=== PATIENT | female | born 1965 | race African-American/Black ===

== ENCOUNTER 2018-02-04 05:02 | Day surgery (SDC) | payer OTHER ==
[2018-02-03 17:17] VITALS: BMI 29.2
--- NOTE | 2018-02-03 19:40 | HP ---
DATE OF ADMISSION: 02/04/2018 DATE OF SURGERY: 02/04/2018 ADMITTING DIAGNOSIS: Chronic sinusitis. HISTORY OF PRESENT ILLNESS: This 52-year-old female has had longstanding history of nasal and sinus symptoms which have failed to improve with appropriate medical therapy. She has had headache, nasal drainage including purulent nasal drainage , sinus pain and sinus pressure as well as dental pain. There has been no significant blood. She had had prior antibiotic treatment which failed to keep her symptoms away. She sometimes also gets a bad odor from her nose. She has had a previous positive CT in 2013, a more recent CT in 2018 shows continued chronic sinusitis. She is now brought to surgery for treatment. PAST MEDICAL HISTORY: Primary medical doctor is Sarah Burton M.D. Patient has history of allergic rhinitis, chronic sinusitis. She has undergone prior surgery for hemorrhoids and metacarpal surgery and shoulder surgery under general anesthesia. She had a in 2001. She has never smoked. PRESENT MEDICATIONS: Include fluticasone nasal spray and fluocinolone topical steroid cream. ALLERGIES TO MEDICATIONS: None known. There is no history of anesthesia problems. Bleeding history is negative. Negative for bleeding or anesthesia problems. Patient is postmenopausal. PHYSICAL EXAMINATION: General: Patient is well developed female, in no distress. HEENT: Head is normal. Eyes are clear. Ears are unremarkable. She does have normal external nose. The nasal septum is deviated, turbinates are slightly enlarged. She has had pus in the left middle meatus. Neck: Unremarkable. 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 The tunnel recess is narrowed by mucosal thickening. There is an agger nasi cell. There is thickening in left anterior ethmoid cells, and disease in the ethmoid bulla. Maxillary sinus is nearly completely opacified with significant inspissated secretions with some calcific components. There is obstruction of sinus drainage pathway. The right frontal sinus is clear. The right maxillary sinus has lobulated mucosal thickening along the floor. Sphenoid sinuses are clear. IMPRESSION: Chronic sinusitis, primarily left frontal ethmoid and maxillary sinuses. PLAN: Endoscopic sinus surgery under general anesthesia with image guidance. INFORMED CONSENT: Patient understands the indications, alternatives, nature of risks and benefits of proposed surgery. Potential complications including but not limited to anesthesia, bleeding, infection, recurrence, numbness, hole in the septum, reduced sense of smell, eye injury and brain injury were discussed in detail. She understands and accepts these risks and wishes to proceed with surgery. Questions were answered fully. KEV MCGHEE M.D. [id number] MTDD
[2018-02-04] MEDS ORDERED: fentaNYL CITRATE 250 MCG/5 ML VIAL ONE (10:07)
[2018-02-04] MEDS ORDERED: MIDAZOLAM HCL 2 MG/2 ML SINGLE DOSE VIAL ONE (10:07)
--- NOTE | 2018-02-04 10:08 | HP ---
History & Physical Update - History History: No Change - Physical Physical: No Change - Assessment Assessment: No Change - Plan Plan: No Change
[2018-02-04] MEDS ORDERED: oxyCODONE HCL 5 MG TABLET PO PRN (10:11)
[2018-02-04] MEDS ORDERED: ONDANSETRON 4 MG/2 ML VIAL IVPUSH PRN (10:11)
[2018-02-04] MEDS ORDERED: PROMETHAZINE HCL 25 MG/1 ML VIAL IVPUSH PRN (10:11)
[2018-02-04] MEDS ORDERED: LACTATED RINGERS SOLUTION 1,000 ML IV SCH (10:15)
[2018-02-04] MEDS ORDERED: COCAINE HCL 4% TOPICAL SOLUTION 4 ML BOTTLE TP ONE ×2 (10:34→10:44)
[2018-02-04] MEDS ORDERED: ceFAZolin SODIUM 1 GM VIAL IVPB ONE (10:40)
[2018-02-04] MEDS ORDERED: DESFLURANE GAS 240 ML BOTTLE IH ONE (11:56)
[2018-02-04] MEDS ORDERED: GLYCOPYRROLATE 0.2 MG/1 ML VIAL ONE (12:07)
[2018-02-04] MEDS ORDERED: NEOSTIGMINE METHYLSULFATE 0.5 MG/ML - 10 ML MDV ONE (12:08)
[2018-02-04] MEDS ORDERED: TRIMETHOBENZAMIDE HCL 200MG/2ML INJ IM PRN (12:21)
[2018-02-04] MEDS ORDERED: ACETAMINOPHEN 325 MG TABLET (FP) PO PRN (12:21)
--- NOTE | 2018-02-04 12:21 | OP ---
Operative Note - Note: Operative Date: 02/04/18 (42450) Pre-Operative Diagnosis: chronic sinusitis frontal ethmoid maxillary Post-Operative Diagnosis: Same as Pre-op Surgeon: Jt Madrid Anesthesiologist/C UNIX DEVELOPER: Jt Sevilla Anesthesia: General Specimens Removed: right ethmoid sinus, left ethmoid and maxillary sinus Estimated Blood Loss (mls): 40 Blood Volume Replaced (mls): 0 Operative Report Dictated: Yes
[2018-02-04] MEDS ORDERED: ONDANSETRON 4 MG/2 ML VIAL ONE (12:31)
--- NOTE | 2018-02-04 14:13 | OP ---
DATE OF OPERATION: 02/04/2018 PREOPERATIVE DIAGNOSIS: Chronic ethmoid, maxillary and frontal sinusitis. POSTOPERATIVE DIAGNOSIS: Chronic ethmoid, maxillary and frontal sinusitis. PROCEDURE: Right endoscopic maxillary antrostomy, left endoscopic ethmoidectomy anterior, left endoscopic maxillary antrostomy with removal of tissue, and left endoscopic frontal sinus exploration with image guidance. SURGEON: Kev Madrid MD ANESTHESIOLOGIST: Kev Sevilla MD ANESTHESIA: General via endotracheal tube. INDICATION: This is a 52-year-old female who has had chronic sinus symptoms which have failed to improve with appropriate antibiotics. Examination demonstrates purulence from the left middle meatus. CT scan demonstrates right maxillary sinus disease, significant disease in the left frontal, left ethmoid and left maxillary sinuses with near opacification and inspissated secretions. She is now brought to surgery for treatment. FINDINGS: Chronic sinusitis. PROCEDURE: Patient was brought to the operating room and placed on the operating table in the supine position. General endotracheal anesthesia was induced to a satisfactory level. She was prepped and draped in the usual fashion for surgery. CT scan data was loaded into the [employer] surgical navigation system and used intermittently during the case to identify anatomic landmarks and guide surgical dissection after appropriate patient registration. Cocaine 4% was placed topically in the nasal cavities. After an appropriate time the pledgets were removed. Nasal endoscopy was performed with the 0-degree telescope. The nasal septum was unremarkable. There was some inferior turbinate swelling. There was narrowing of both middle meatuses and pus was seen coming from the left side. Lidocaine 1% with epinephrine 1:200,000 was infiltrated into the lateral nasal arreola as well as the left middle turbinate. Additional cocaine was placed within the middle meati. Attention was first turned toward the right maxillary sinus. The patient had markedly hypertrophic uncinate processes which were then incised and removed on the right side. The natural ostium was identified and then enlarged with forceps. The interior of the sinus was identified with the 70-degree scope and mild edema was noted but no pus. Attention was then turned toward the left paranasal sinuses. The significantly prominent uncinate process was then incised with sickle knife and then removed with forceps. This opened up the infundibulum. The ethmoid bulla was opened. Anterior ethmoidectomy was performed with the ethmoid forceps and the Xomed microdebrider. Care was taken to preserve the lamina papyracea and the fovea ethmoidalis. After clearing the affected ethmoid air cells anteriorly, attention was turned toward the frontal sinus. The anterior most ethmoid cells were removed with the upbiting forceps. The 70-degree scope and the curved suction tip were then used. Diseased tissue was removed and dissected from the frontal recess and the frontal ostium was identified and cleared. No pus was seen. The location was confirmed with the navigation system. Attention was then turned toward the left maxillary sinus. The middle meatal antrostomy was created with the forceps. Thin pus was aspirated. Some thicker infected material was seen anteriorly which was removed. The sinus was then irrigated with significant saline. Persistent oozing was noted from the sinus margins and the sinus itself due to the degree of inflammation. The left sinuses were packed temporarily. Electrocauterization was used to complete hemostasis. NasoPore dressing was then placed, just a portion on the right side and a full pack on the left. Because of the oozing present during the case, folded Telfa gauze coated with antibiotic ointment was then placed in the inferior nasal cavity on the left side only. Patient tolerated the procedure well. She was then awakened from general anesthesia and transferred to the PACU in stable condition. Estimated blood loss was 40 mL. She received crystalloid during the procedure. Specimens were sent to Pathology including right ethmoid sinus and right ethmoid and maxillary sinus which were sent for routine studies. There were no complications. KEV MADRID M.D. [id number] MTDElidia
[2018-02-04 14:26] VITALS: TEMP 97.9
[2018-02-04] MEDS ORDERED: ALBUTEROL SO4 0.083% IH SOL 2.5 MG/3 ML VIAL.NEB. NEB ONE (14:45)
[2018-02-04] MEDS ORDERED: CODEINE SO4 30 MG TABLET ONE (16:48)
[2018-02-04] MEDS ORDERED: ACETAMINOPHEN 325 MG TABLET (FP) ONE (16:49)
[2018-02-04] MEDS ORDERED: ACETAMINOPHEN WITH CODEINE 300MG/30MG TABLET PO ONE (17:00)
[2018-02-04 17:22] VITALS: BP 122/66; PULSE 68
--- NOTE | 2018-02-05 18:00 | PATH ---
Surgical Pathology Report Patient Name: MEDINA DOMÍNGUEZ [facility]. Rec. #: [id number] /Age/Gender: 1965 (Age: 52) / F Account: [id number] Location: AMBULATORY SURG Taken: 02/04/2018 Received: 02/04/2018 Reported: 02/05/2018 Physicians: Jt Madrid M.D. Specimen(s) Received A: RIGHT ETHMOID TISSUE B: LEFT ETHMOID TISSUE Clinical History Chronic sinusitis Final Diagnosis A. ETHMOID TISSUE, RIGHT, BILATERAL MAXILLARY ANTROSTOMY WITH TISSUE REMOVAL, BILATERAL ETHMOIDECTOMY, BILATERAL FRONTAL SINUSOTOMY: RESPIRATORY MUCOSA WITH MILD CHRONIC SINUSITIS AND BONE. B. ETHMOID TISSUE, LEFT, BILATERAL MAXILLARY ANTROSTOMY WITH TISSUE REMOVAL, BILATERAL ETHMOIDECTOMY, BILATERAL FRONTAL SINUSOTOMY: RESPIRATORY MUCOSA WITH CHRONIC SINUSITIS AND BONE. Electronically Signed Gini Stoddard M.D. Gross Description A. Received in formalin labeled "right ethmoid tissue," is a 1.2 x 1.0 x 0.2 cm aggregate of champagne soft tissue and cartilage fragments admixed with possible bone fragments. The specimen is entirely submitted in one cassette, following decalcification. B. Received in formalin labeled "left ethmoid tissue," is a 2.0 x 1.6 x 0.3 cm aggregate of champagne soft tissue and cartilage fragments admixed with possible bone fragments. The specimen is entirely submitted in one cassette, following decalcification. DL/02/05/2018 saudi/02/05/2018
== END 2018-02-04 18:21 | disposition home or self-care (01) ==
LOC: JASUSAT 05:02
PROVIDERS: ATTEND Otolaryngology
PROC: 099R8ZZ Drainage of Left Maxillary Sinus, Via Natural or Artificial Opening Endoscopic (ICD-10-PCS; 2018-02-04)
PROC: 099R8ZZ Drainage of Left Maxillary Sinus, Via Natural or Artificial Opening Endoscopic (ICD-10-PCS; 2018-02-04)
PROC: 09JY8ZZ Inspection of Sinus, Via Natural or Artificial Opening Endoscopic (ICD-10-PCS; 2018-02-04)
PROC: 099Q8ZZ Drainage of Right Maxillary Sinus, Via Natural or Artificial Opening Endoscopic (ICD-10-PCS; principal; 2018-02-04 10:00)
DX: J32.2 Chronic ethmoidal sinusitis (principal); J32.0 Chronic maxillary sinusitis; J32.1 Chronic frontal sinusitis
CPT/HCPCS: 84703; 88304-TC; 94640; 94760

== ENCOUNTER 2023-12-02 04:09 | Day surgery (SDC) | payer OTHER ==
[2023-11-27 11:06] VITALS: BMI 31.6
[2023-12-02] MEDS ORDERED: ONDANSETRON 4 MG/2 ML VIAL IVPUSH PRN ×2 (07:21→08:47)
[2023-12-02] MEDS ORDERED: oxyCODONE HCL 5 MG TABLET PO PRN ×2 (07:21→08:47)
[2023-12-02] MEDS ORDERED: LACTATED RINGERS SOLUTION 1,000 ML IV SCH (07:30)
[2023-12-02] MEDS ORDERED: KETOROLAC TROMETHAMINE 30 MG/1 ML VIAL ONE (08:13)
[2023-12-02] MEDS ORDERED: DEXAMETHASONE SOD PHOSPHATE 4 MG/1 ML VIAL ONE (08:13)
[2023-12-02] MEDS ORDERED: MIDAZOLAM HCL 2 MG/2 ML SINGLE DOSE VIAL ONE (08:13)
[2023-12-02] MEDS ORDERED: ONDANSETRON 4 MG/2 ML VIAL ONE (08:13)
[2023-12-02] MEDS ORDERED: FENTANYL CITRATE/PF 50 MCG/ML VIAL ONE (08:14)
[2023-12-02] MEDS ORDERED: IBUPROFEN 600 MG TABLET (FP) PO PRN (08:47)
[2023-12-02] MEDS ORDERED: IBUPROFEN 800 MG/8 ML IJ IVPB PRN (08:47)
[2023-12-02] MEDS ORDERED: ACETAMINOPHEN INJECTION 100 ML IVPB ONE (08:57)
[2023-12-02] MEDS ORDERED: ELECTROLYTE-148 SOLN 1,000 ML IV SCH (09:00)
[2023-12-02 11:22] VITALS: TEMP 97.3
[2023-12-02 12:47] VITALS: BP 120/60; PULSE 64; RESP 18
== END 2023-12-02 13:13 | disposition home or self-care (01) ==
LOC: JASU-SURG 04:09
PROVIDERS: ATTEND Obstetrics & Gynecology
PROC: 0UB98ZZ Excision of Uterus, Via Natural or Artificial Opening Endoscopic (ICD-10-PCS; principal; 2023-12-02 08:30)
DX: D25.9 Leiomyoma of uterus, unspecified (principal); N84.0 Polyp of corpus uteri
CPT/HCPCS: 86850; 86900; 86901; 88305-TC; 94760; J0131

== ENCOUNTER 2024-06-18 04:33 | Day surgery (SDC) | payer OTHER ==
[2024-06-17 10:28] VITALS: BMI 31.0
[2024-06-18] MEDS ORDERED: ACETAMINOPHEN 500 MG TABLET (FP) PO PRN (08:55)
[2024-06-18 09:17] VITALS: RESP 18
[2024-06-18] MEDS: LIDOCAINE HCL 1% PRESERVATIVE FREE - 30ML VIAL IJ ONE ×3 (10:44)
[2024-06-18] MEDS: IOHEXOL 180 MG/1 ML ML IJ ONE ×3 (10:47)
[2024-06-18] MEDS: DEXAMETHASONE SOD PHOSPHATE 10 MG/1 ML VIAL IM ONE ×2 (10:48)
[2024-06-18 12:26] VITALS: BP 125/62; PULSE 53; TEMP 98.6
== END 2024-06-18 11:19 | disposition home or self-care (01) ==
LOC: JASU-SURG 04:33
PROVIDERS: ATTEND Pain Medicine Pain Medicine
PROC: 3E0R3BZ Introduction of Anesthetic Agent into Spinal Canal, Percutaneous Approach (ICD-10-PCS; 2024-06-18)
PROC: 3E0R33Z Introduction of Anti-inflammatory into Spinal Canal, Percutaneous Approach (ICD-10-PCS; principal; 2024-06-18 10:45)
DX: M54.16 Radiculopathy, lumbar region (principal)
CPT/HCPCS: 76000-TC-FY; J1100